=== PATIENT | female | born 1970 | race Caucasian/White ===

== ENCOUNTER 2018-06-16 14:40 | Emergency (ER) | payer SELFPAY ==
[~2018-06-16] VITALS: Ht 162.6 cm; Wt 73.0 kg
[2018-06-16 15:59] LABS: CLARITY URINE CLEAR (CLEAR); COLOR URINE DARK YELLOW (YELLOW); KETONES URINE TRACE (NEGATIVE); LEUKOCYTE ESTERASE URINE NEGATIVE (NEGATIVE); NITRITE URINE NEGATIVE (NEGATIVE); OCCULT BLOOD URINE TRACE (NEGATIVE); PH URINE 5.5 (4.5-8.0); PROTEIN URINE NEGATIVE (NEGATIVE); SPECIFIC GRAVITY URINE 1.023 (1.005-1.030); UROBILINOGEN URINE 0.2 E.U./dL (0.2-1.0)
[2018-06-16] MEDS ORDERED: SODIUM CHLORIDE 0.9% 1,000 ML IV ONE (17:10)
[2018-06-16] MEDS ORDERED: ONDANSETRON HCL 4MG/2ML VIAL IV STA (17:10)
[2018-06-16] MEDS ORDERED: MORPHINE SULFATE 4 MG/ML CPJ (NOT FOR IM USE) IV STA (17:10)
[2018-06-16] MEDS ORDERED: FAMOTIDINE 20MG/2ML VIAL IV ONE (17:15)
[2018-06-16 17:58] LABS: BASOPHILS % 0.3 % (0.0-2.0); EOSINOPHILS % 0.7 % (0.0-5.0); HEMATOCRIT. 36.5 % (36.0-48.0); HEMOGLOBIN. 12.2 g/dL (12.0-16.0); LYMPHOCYTES % 15.7 % (20.0-50.0); MEAN CORPUSCULAR HEMOGLOBIN 29.6 pg (28.0-32.0); MEAN CORPUSCULAR VOLUME 88.5 fL (81.0-99.0); MEAN PLATELET VOLUME 9.5 fl (7.4-10.4); MONOCYTES % 4.2 % (2.0-8.0); NEUTROPHILS % 79.1 % (40.0-76.0); PLATELET 269 x1000/uL (130-400); RED BLOOD CELL COUNT 4.12 mill/uL (4.2-5.4); RED CELL DISTRIBUTION WIDTH 13.6 % (11.6-14.6)
[2018-06-16 18:00] LABS: CHLORIDE 108 mEq/L (98-107)
[2018-06-16 18:03] LABS: PARTIAL THROMBOPLASTIN TIME 25.8 sec (23.4-31.0); PROTHROMBIN TIME 10.1 sec (9.4-11.6)
[2018-06-16] MEDS ORDERED: IOHEXOL-300 100 ML BOTTLE ONE (19:28)
[2018-06-16 20:20] VITALS: BP 117/64
== END 2018-06-16 21:33 | disposition home or self-care (01) ==
LOC: ER 14:40
DX: R10.33 Periumbilical pain (principal); D72.829 Elevated white blood cell count, unspecified; R00.1 Bradycardia, unspecified; K21.9 Gastro-esophageal reflux disease without esophagitis; Z98.890 Other specified postprocedural states
CPT/HCPCS: 36415; 71045; 74177; 80053; 81003; 81025; 83690; 85025; 85610; 85730; 86850; 86900; 86901; 93005; 96361; 96374; 96375; 99285; J2270; J2405; J3490; J7030; Q9967

== ENCOUNTER 2023-09-01 21:05 | Emergency (ER) | payer MEDICAID ==
[~2023-09-01] VITALS: Ht 162.6 cm; Wt 90.0 kg
[2023-09-01 21:18] VITALS: O2SAT 97
[2023-09-01] MEDS ORDERED: IBUP-2030 MT (23:32)
[2023-09-01 23:51] VITALS: BP 126/70; PULSE 72; RESP 18; TEMP 98.6
== END 2023-09-01 23:53 | disposition home or self-care (01) ==
LOC: ER 21:05
DX: M25.561 Pain in right knee (principal); M17.11 Unilateral primary osteoarthritis, right knee; Z98.890 Other specified postprocedural states
CPT/HCPCS: 73562; 99283

== ENCOUNTER 2024-03-22 20:00 | Emergency (ER) | payer MEDICAID ==
[~2024-03-22] VITALS: Ht 165.1 cm; Wt 92.0 kg
[~2024-03-22 20:00] MED LIST: IBUP-2030 MT
[2024-03-22 20:11] VITALS: TEMP 98; O2SAT 100
[2024-03-22] MEDS: KETOROLAC 30MG/ML VIAL IM ONE (22:15)
[2024-03-22] MEDS ORDERED: NAPR500T7 MT (22:59)
[2024-03-22 23:32] VITALS: BP 126/66; PULSE 96; RESP 18
== END 2024-03-22 23:32 | disposition home or self-care (01) ==
LOC: ER 20:22
DX: M25.562 Pain in left knee (principal)
CPT/HCPCS: 99285; 93971; 73560; 96372; J1885

== ENCOUNTER 2025-07-23 10:22 | Emergency (ER) | payer MEDICAID ==
[~2025-07-23] VITALS: Ht 165.1 cm; Wt 82.0 kg
[~2025-07-23 10:22] MED LIST changes: +NAPR-1486 MT
[2025-07-23 10:37] VITALS: O2SAT 99
[2025-07-23 11:23] LABS: BASOPHILS % 0.6 % (0.0-2.0); EOSINOPHILS % 1.7 % (0.0-5.0); HEMATOCRIT. 39.8 % (36.0-48.0); HEMOGLOBIN. 13.3 g/dL (12.0-16.0); LYMPHOCYTES % 20.7 % (20.0-50.0); MEAN PLATELET VOLUME 8.9 fl (7.4-10.4); MONOCYTES % 5.9 % (2.0-8.0); NEUTROPHILS % 71.1 % (40.0-76.0); PLATELET 270 x1000/uL (130-400); RED BLOOD CELL COUNT 4.56 mill/uL (4.2-5.4); RED CELL DISTRIBUTION WIDTH 13.5 % (11.6-14.6)
[2025-07-23 11:36] LABS: CREATININE 0.6 mg/dL (0.6-1.0); UREA NITROGEN BLOOD 13 mg/dL (9-23)
[2025-07-23] MEDS: MECLIZINE 25MG TABLET PO ONE (12:07)
[2025-07-23 12:08] LABS: ASPARTATE AMINOTRANSFERASE 19 IU/L (<34); BILIRUBIN DIRECT 0.2 mg/dL (<=3.0); BILIRUBIN TOTAL 0.8 mg/dL (0.1-1.0); PROTEIN TOTAL 6.8 g/dL (6.0-8.3)
[2025-07-23] MEDS ORDERED: MECL-299 MT (13:04)
[2025-07-23 13:49] VITALS: BP 133/74; PULSE 61; RESP 16; TEMP 36.8; O2SAT 99
== END 2025-07-23 13:52 | disposition home or self-care (01) ==
LOC: ER 10:22
DX: H81.10 Benign paroxysmal vertigo, unspecified ear (principal); Z90.710 Acquired absence of both cervix and uterus
CPT/HCPCS: 99285; 70450; 71045; 80076; 80048; 85025; 36415; 93005; J8597